=== PATIENT | female | born 1980 | race Caucasian/White ===

== ENCOUNTER 2020-11-04 07:15 | Observation (INO) ==
[2020-11-04] MEDS ORDERED: Aspirin 81 MG TAB.CHEW PO ONE (07:43)
[2020-11-04 08:17] LABS: Basophils % 0.5 %
[2020-11-04 08:19] LABS: Eosinophils # 0.1 K/mcL (0.0-0.6); Eosinophils % 1.8 %; Hematocrit 33.8 % (35.3-44.9); Hemoglobin 10.1 g/dL (11.5-15.4); Immature Granulocytes % 1.1 % (0-4); Lymphocytes # 1.4 K/mcL (0.6-4.6); Lymphocytes % 22.8 %; Mean Corpuscular HGB Conc 29.9 g/dL (31.6-35.5); Mean Corpuscular Hemoglobin 22.5 pg (28.0-33.3); Mean Corpuscular Volume 75.4 fL (83.0-100.0); Mean Platelet Volume 10.8 fL (9.4-12.4); Monocytes # 0.3 K/mcL (0.0-1.3); Monocytes % 4.6 %; Neutrophils # 4.4 K/mcL (1.6-8.9); Platelet Count 273 K/mcL (140-400); Red Blood Count 4.48 M/mcL (3.82-4.97); Red Cell Distribution Width 17.7 % (11.5-14.5); Segmented Neutrophils % 69.2 %; White Blood Count 6.3 K/mcL (4.3-11.1)
[2020-11-04 08:41] LABS: Alanine Aminotransferase 22 Units/L (7-52); Albumin 3.5 g/dL (3.5-5.7); Albumin/Globulin Ratio 1.1 (1.1-2.2); Alkaline Phosphatase 76 Units/L (34-104); Aspartate Amino Transferase 14 Units/L (13-39); BUN/Creatinine Ratio 11 (6-26); Bilirubin,Direct 0.1 mg/dL (0.0-0.2); Bilirubin,Indirect 0.2 mg/dL (0.0-1.0); Bilirubin,Total 0.3 mg/dL (0.3-1.0); Blood Urea Nitrogen 7 mg/dL (6-20); Calcium 8.8 mg/dL (8.6-10.3); Carbon Dioxide 27 mEq/L (23-29); Chloride 104 mEq/L (98-107); Globulin 3.2 g/dL (2.4-3.5); Glucose 326 mg/dL (70-105); Lipase 23 Units/L (11-82); Osmolality,Calculated 291 (280-300); Potassium 4.3 mEq/L (3.5-5.1); Sodium 135 mEq/L (136-145); Total Protein 6.7 g/dL (6.4-8.9); Troponin I < 0.03 ng/mL (< 0.04); eGFR For African Americans > 60 (> 60); eGFR For Non-African Americans > 60 (> 60)
[2020-11-04] MEDS ORDERED: Isovue-370 500 ML BOTTLE IVP ONE (09:26)
[2020-11-04] MEDS ORDERED: Naloxone 0.4 MG/ML INJ IVP PRN (11:30)
[2020-11-04] MEDS ORDERED: Dextrose Gel 15 GM/37.5 ML TUBE PO PRN ×2 (14:13)
[2020-11-04] MEDS ORDERED: *HR* Dextrose 50 % in Water (Vial) 50 ML VIAL IVP PRN (14:13)
[2020-11-04] MEDS ORDERED: D5% in Water 1,000 ML IVC PRN (14:13)
[2020-11-04] MEDS ORDERED: Perflutren Lipid Microsphere 1.3 ML in 0.9 % Sodium Chloride 8.7 ML IVP PRN (15:20)
[2020-11-04] MEDS: Insulin LISPRO 300 UNITS/3 ML VIAL SUBQ SCH (17:27)
[2020-11-04] MEDS ORDERED: Insulin LISPRO 300 UNITS/3 ML VIAL SUBQ SCH (21:00)
[2020-11-04] MEDS ORDERED: Insulin DETEMIR 100 UNIT/ML X5UNITS SUBQ SCH (21:00)
[2020-11-05 03:06] VITALS: O2SAT 98
[2020-11-05 03:14] LABS: Basophils % 0.5 %; Hematocrit 36.7 % (35.3-44.9); Immature Granulocytes % 0.3 % (0-4); Lymphocytes % 29.4 %; Monocytes % 5.6 %
[2020-11-05 03:16] LABS: Eosinophils # 0.2 K/mcL (0.0-0.6); Eosinophils % 1.8 %; Hemoglobin 10.3 g/dL (11.5-15.4); Immature Platelets 9.5 % (1.1-6.1); Lymphocytes # 2.6 K/mcL (0.6-4.6); Mean Corpuscular HGB Conc 28.1 g/dL (31.6-35.5); Mean Corpuscular Hemoglobin 21.7 pg (28.0-33.3); Mean Corpuscular Volume 77.3 fL (83.0-100.0); Mean Platelet Volume 12.1 fL (9.4-12.4); Monocytes # 0.5 K/mcL (0.0-1.3); Platelet Count 253 K/mcL (140-400); Red Blood Count 4.75 M/mcL (3.82-4.97); Red Cell Distribution Width 18.1 % (11.5-14.5); Segmented Neutrophils % 62.4 %; White Blood Count 8.9 K/mcL (4.3-11.1)
[2020-11-05 03:34] LABS: Neutrophils # 5.6 K/mcL (1.6-8.9)
[2020-11-05 03:40] LABS: BUN/Creatinine Ratio 16 (6-26); Blood Urea Nitrogen 10 mg/dL (6-20); Calcium 8.6 mg/dL (8.6-10.3); Carbon Dioxide 26 mEq/L (23-29); Chloride 105 mEq/L (98-107); Chol/HDL Ratio 4.1 (0-4.9); Cholesterol 175 mg/dL (< 200); Glucose 169 mg/dL (70-105); HDL Cholesterol 43 mg/dL (40-59); LDL Cholesterol,Calculated 99 mg/dL (< 100); Osmolality,Calculated 285 (280-300); Potassium 4.2 mEq/L (3.5-5.1); Sodium 136 mEq/L (136-145); Triglycerides 165 mg/dL (< 150); eGFR For African Americans > 60 (> 60); eGFR For Non-African Americans > 60 (> 60)
[2020-11-05 04:35] LABS: Estimated Average Glucose 200 mg/dl; Hemoglobin A1C 8.6 %
[2020-11-05] MEDS ORDERED: Regadenoson 0.4 MG/5 ML SYRINGE IVP ONE (07:31)
[2020-11-05] MEDS ORDERED: Aspirin Enteric Coated 81 MG Tablet PO SCH (09:00)
[2020-11-05] MEDS: Insulin LISPRO 300 UNITS/3 ML VIAL SUBQ SCH ×2 (09:54→12:49)
[2020-11-05 12:20] VITALS: BP 120/78; PULSE 95; TEMP 98
== END 2020-11-05 14:14 | disposition home or self-care (01) ==
LOC: 3BNU 07:15 → EMEROOARM 07:15 → SUATTDRO 10:59 → 3BNU 12:45
PROVIDERS: ADMIT Internal Medicine; ATTEND Registered Nurse